=== PATIENT | female | born 1990 | race Caucasian/White ===

== ENCOUNTER 2020-02-01 00:19 | Emergency (ER) | payer SELFPAY ==
[2020-02-01 00:24] VITALS: BP 137/91; PULSE 84; RESP 16; TEMP 36.3; O2SAT 97; BMI 25.4
--- NOTE | 2020-02-01 00:34 | ED_ITS ---
HPI - Skin/Abscess/Foreign Bdy General: Chief complaint: Skin/Abscess/Foreign Body Stated complaint: HOT/RED RASH ON BELLY Time Seen by Provider: 02/01/20 00:26 History of Present Illness: HPI narrative: Nadine is a nice 29-year-old female who comes in complaining of a rash and red tender area on her mid abdomen. She noticed the symptoms several hours ago. She is not aware of any break in the skin but does have redness in the area. She has any fever, chills or nausea/vomiting. She unaware of anything that makes her symptoms better or worse. She describes the intensity of the pain is moderate. She is not tried anything at home for this prior to arrival. Associated symptoms: Deny chills, fever(s), nausea or vomiting Review of Systems Const: Denies: fever(s), chills, body aches, fatigue, malaise, night sweats or diaphoresis Eyes: Denies: change in vision, blurry vision or blind spots ENMT: Denies: throat pain, odynophagia, hoarseness, ear or mastoid pain, ear discharge, change in hearing or nasal discharge Card: Denies: chest pain, palpitations, irregular heart rhythm, lightheadedness, syncope, pre-syncope, dyspnea on exertion or orthopnea Resp: Denies: dyspnea, productive cough, non-productive cough, wheezing, hemoptysis or chest congestion GI: Denies: abdominal pain, nausea, vomiting, hematemesis, coffee ground emesis, heartburn, diarrhea, constipation, GI cramping, hematochezia or melena : Denies: flank pain, dysuria, urinary frequency, urinary urgency, oliguria, urinary incontinence or hematuria Musc: Denies: neck pain, back pain, extremity pain, extremity swelling, joint pain, joint swelling, joint redness, joint warmth or joint stiffness Skin/Breast: Reports: rash, erythema and skin tenderness; Denies: pruritus or jaundice Neuro: Denies: headache(s), numbness in extremities, weakness in extremities, sensory changes, lack of coordination, difficulty walking, dizziness, vertigo, confusion or Slurred speech present Endo: Denies: polyuria, polydipsia, tired all the time, cold intolerance, excessive sweating, flushing, hot flashes or heat intolerance Radu/Lymph: Denies: easy bruising, easy bleeding, petechiae, purpura or enlarged lymph nodes All/Imm: Denies: urticaria, throat swelling, tongue swelling, facial swelling or acute wheezing PFSH ED PFSH: Medical History No pertinent past medical history Surgical History No history of previous surgery Social History Smoking and tobacco status: never smoked Physical Exam Const: COMMON NORMALS: no acute distress, patient oriented x3, no limitations, healthy appearing and well nourished EXAM LIMITATIONS: no altered mental status GENERAL APPEARANCE: cooperative, well kempt and well developed HENMT: COMMON NORMALS: normocephalic, atraumatic, hearing grossly normal bilaterally, external ears normal, EAC's normal, Normal external nose present and moist oral mucous membranes HEAD & SCALP: normal to inspection, normocephalic and atraumatic FACE & SINUS: normal facial exam and face symmetric NOSE: Normal external nose present and Normal nares present EXTERNAL EAR: Yes external ears normal EXTERNAL AUDITORY CANAL: EAC's normal MOUTH: Normal oral and palatal mucosa present, lip normal and tongue normal Eye: COMMON NORMALS: Equal, round and reactive pupils present, EOMs intact bilaterally, conjunctivae normal and no scleral icterus GENERAL EYE: appearance normal, both eyes and all related structures ALIGNMENT: Yes alignment normal PERIORBITAL: periorbital findings normal EYELID: eyelids normal CONJUNCTIVA: Yes conjunctivae normal SCLERA: sclerae normal PUPI L: Yes Equal, round and reactive pupils present Neck/C-Spine: COMMON NORMALS: full ROM, no lymphadenopathy, supple, no meningeal signs and no JVD GENERAL: Yes normal visual inspection and Yes trachea midline CERVICAL SPINE: Yes cervical ROM normal Chest: COMMONS NORMALS: normal inspection of the chest and normal palpation of entire chest wall Resp: COMMON NORMALS: normal respiratory effort, No retractions, No use of accessory muscles and clear to auscultation bilaterally EFFORT & INSPECTION: Yes able to speak in complete sentences AUSCULTATION: clear to auscultation bilaterally, no crackles, no rales, no rhonchi and no wheezes Cardio: COMMON NORMALS: no JVD, regular rate, regular rhythm, S1 normal heart sound present, S2 normal heart sound present, No gallops present (Cardio), No clicks present (Cardio), No murmurs present (Cardio) and No rub (Cardio) RATE: regular rate RHYTHM: regular rhythm HEART SOUNDS: S1 normal heart sound present, S2 normal heart sound present, no click, no gallops, no murmurs and no rubs GI: COMMON NORMALS: Soft to palpation, non-tender, No hepatosplenomegaly present and no masses PALPATION: Yes Soft to palpation, No Tenderness to palpation present (GI), No Guarding due to palpation present (GI), No Rigid due to palpation, Yes No hepatosplenomegaly present, No Hernia present, No Palpable mass present and No Pulsatile mass present : COMMON NORMALS: Yes no CVA tenderness BLADDER/KIDNEY EXAM: Yes no CVA tenderness EXTERNAL FEMALE EXAM: No Hernia present Back/Pelvis: COMMON NORMALS: no CVA tenderness, thoracic and lumbar spine normal to inspection, no thoracic nor lumbar tenderness and thoraco-lumbar ROM normal Extremity: COMMON NORMALS: normal to inspection, full ROM, capillary refill normal, no joint enlargement, no clubbing, cyanosis or edema and no calf tenderness Neuro: COMMON NORMALS: patient oriented x3, CN's II-XII intact bilaterally, moves all extremities, no focal motor deficits and no sensory deficits noted MENINGEAL SIGNS: Yes no meningeal signs SPEECH: speech normal Psych: COMMON NORMALS: mental status grossly normal, Normal thought process present, cooperative, normal affect, speech normal and activity/motor behavior normal APPEARANCE: Yes well kempt SPEECH: Yes normal speech THOUGHT PROCESS: Normal thought process present Skin: COMMON NORMALS: turgor normal, no jaundice, no petechiae and no mottling NARRATIVE SKIN EXAM: Area the size of the patient's palm of cellulitis on the abdominal wall. Area is mildly tender. There is no drainable lesion seen. Area is between the epigastric area and the umbilicus. GENERAL SKIN EXAM: turgor normal Course Vital Signs: Vital signs: Vital Signs Temperature 97.4 F L 02/01/20 00:24 Pulse Rate 80 02/01/20 00:46 Respiratory Rate 16 02/01/20 00:46 Blood Pressure 120/80 02/01/20 00:46 Pulse Oximetry 100 02/01/20 00:46 MDM - Skin/Abscess/Foreign Bdy MDM Narrative: Medical decision making narrative: Bedside ultrasound reveals no evidence of fluid collection or abscess. Ultrasound findings are consistent with a cellulitis. I will go and cover the patient for typical skin cesar with Keflex but also MRSA with Bactrim. Patient understands to watch this and if her symptoms continue to worsen she will need to return here has an abscess could still develop. She has no questions or concerns. Discharge Plan Discharge Patient Disposition: Home, Self-Care Clinical Impression: Cellulitis Qualifiers: Site of cellulitis: trunk Site of cellulitis of trunk: abdominal wall Qualified Code(s): L03.311 - Cellulitis of abdominal wall Condition: Stable Prescriptions: New Bactrim DS 800-160 mg tablet 2 tab PO BID 10 Days Qty: 40 RF: 0 Keflex 500 mg capsule 500 mg PO Q6H 10 Days Qty: 40 RF: 0 No Action Ambien 5 mg Tablet 5 mg PO BEDTIME RF: 0 Discharge Orders: Discharge Order (Routine); Ordered 02/01/20 Ordered By: Iraida Johns Referrals: Nikos Hackett MD [Primary Care Provider] - 1-3 days Discharge Diet: Advance as tolerated Discharge Activity: Increase activity as tolerated Patient Instructions: Cellulitis (ED) Activity Restrictions/Additional Instructions: Please return to the ER immediately for any of the signs or symptoms listed on your discharge instruction sheets, worsening/changing of your symptoms, you are not getting better as quickly as expected, or for ANY other cause or concerns. 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
[2020-02-01] MEDS: cephALEXin 500 mg Capsule PO (00:44)
[2020-02-01] MEDS: acetaminophen 500 mg Tablet 1000 MG PO (00:44)
[2020-02-01] MEDS: sulfamethoxazole-trimeth DS 160-800 mg Tablet 2 TAB PO (00:44)
[2020-02-01 00:46] VITALS: BP 120/80; PULSE 80; RESP 16; O2SAT 100
== END 2020-02-01 00:49 | disposition home or self-care (01) ==
PROVIDERS: Emergency Provider Emergency Medicine; Family Provider Family Medicine; PCP Family Medicine
DX: L03.311 Cellulitis of abdominal wall (principal)
CPT/HCPCS: 12345; 99281; 99283

== ENCOUNTER 2020-05-05 11:46 | Emergency (ER) | payer SELFPAY ==
[2020-05-05 11:55] VITALS: BP 118/56; PULSE 62; RESP 18; TEMP 37; O2SAT 98; BMI 25.4
--- NOTE | 2020-05-05 12:09 | ED_ITS ---
HPI - URI/Sore Throat General: Chief Complaint: Upper Respiratory Infection Stated Complaint: SORE THROAT Time Seen by Provider: 05/05/20 11:56 History of Present Illness: HPI Narrative: Sore throat since last night with some posterior sinus drainage MD elicited complaint: sore throat Onset (ago): hour(s) Severity: mild Associated symptoms: Deny abdominal pain, chills, chest pain, fever(s), headache(s), nasal congestion, nausea or vomiting Review of Systems Const: Denies: fever(s), chills or body aches Eyes: Denies: change in vision or blurry vision ENMT: Reports: throat pain and odynophagia; Denies: nasal congestion Card: Denies: chest pain or dyspnea on exertion Resp: Denies: dyspnea, productive cough or non-productive cough GI: Denies: abdominal pain, nausea or vomiting Musc: Denies: extremity pain Skin/Breast: Denies: rash Neuro: Denies: headache(s) Psych: Denies: anxiety or depression Radu/Lymph: Denies: easy bruising PFS ED PFSH: Medical History (Updated 05/05/20 @ 12:09 by ELVIA Roman) No pertinent past medical history Surgical History No history of previous surgery Social History Smoking and tobacco status: never smoked Physical Exam Const: COMMON NORMALS: no acute distress, average body habitus and patient oriented x3 HENMT: COMMON NORMALS: normocephalic HEAD & SCALP: normal to inspection and normocephalic FACE & SINUS: normal facial exam THROAT: posterior oropharynx abnormal erythema Eye: COMMON NORMALS: conjunctivae normal GENERAL EYE: appearance normal, both eyes and all related structures CONJUNCTIVA: Yes conjunctivae normal Neck/C-Spine: COMMON NORMALS: no JVD Chest: COMMONS NORMALS: normal inspection of the chest Resp: COMMON NORMALS: normal respiratory effort and clear to auscultation bilaterally AUSCULTATION: clear to auscultation bilaterally Cardio: COMMON NORMALS: no JVD, regular rate and regular rhythm RATE: regular rate RHYTHM: regular rhythm GI: COMMON NORMALS: Normal to inspection, nondistended, normoactive bowel sounds present Extremity: COMMON NORMALS: normal to inspection and full ROM Neuro: COMMON NORMALS: patient oriented x3 Course Vital Signs: Vital signs: Vital Signs Temperature 98.6 F 05/05/20 11:55 Pulse Rate 62 05/05/20 11:55 Respiratory Rate 18 05/05/20 11:55 Blood Pressure 118/56 05/05/20 11:55 Pulse Oximetry 98 05/05/20 11:55 Discharge Plan Discharge Patient Disposition: Home Clinical Impression: Pharyngitis Qualifiers: Pharyngitis/tonsillitis etiology: unspecified etiology Qualified Code(s): J02.9 - Acute pharyngitis, unspecified Upper respiratory infection Qualifiers: URI type: unspecified viral URI Qualified Code(s): J06.9 - Acute upper respiratory infection, unspecified Condition: Stable Prescriptions: New Medrol (Lucio) 4 mg tablets,dose pack See Rx Instructions .ROUTE .COMPLEX Qty: 21 RF: 0 No Action Ambien 5 mg Tablet 5 mg PO BEDTIME RF: 0 Discharge Orders: Discharge Order (Routine); Ordered 05/05/20 Ordered By: Jadon Higuera Referrals: Nikso Hackett MD [Primary Care Provider] - Discharge Diet: Usual diet Discharge Activity: Resume usual activity Patient Instructions: Upper Respiratory Infection (ED) Activity Restrictions/Additional Instructions: Follow-up with medical provider as directed. Take medications as prescribed. Return to the ER or your medical provider if condition worsens. Please read and understand discharge instructions. If any questions ask please. Can gargle with Maalox or Mylanta to help with throat discomfort. Can use throat lozenges as needed also. 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
[2020-05-05 12:50] VITALS: BP 110/69; PULSE 63; RESP 18; O2SAT 99
== END 2020-05-05 12:53 | disposition home or self-care (01) ==
PROVIDERS: Emergency Provider Nurse Practitioner Family; PCP Family Medicine
DX: J02.9 Acute pharyngitis, unspecified (principal)
CPT/HCPCS: 12345; 99281; 99282

== ENCOUNTER 2020-05-08 09:45 | Emergency (ER) | payer SELFPAY ==
[2020-05-08 09:53] VITALS: BP 133/80; PULSE 91; RESP 22; TEMP 36.7; O2SAT 100; BMI 24.5
--- NOTE | 2020-05-08 09:56 | CT_ITS ---
WS: [id number] EXAM: CT neck w con* [id number] DATE OF EXAMINATION: 05/08/2020, 1106 hours COMPARISON: None. HISTORY: 29 years old with throat and neck pain for the last 3 days. Dysphagia. TECHNIQUE: Transaxial computed tomography images obtained through the neck utilizing 95 mL of Omnipaq ue 300 IV contrast with images acquired in the bolus phase and viewed in multiple windows with recons tructions. DLP: 516.[address] scans at [facility] use at least one of these dose optimization techniques: automat ed exposure control; mA and/or kV adjustment per patient size (includes targeted exams where dose is matched to clinical indication); or iterative reconstruction. FINDINGS: The visualized mid and inferior intraconal contents are unremarkable. Orbital fossa contents as visua lized are unremarkable. Nasopharyngeal region, parapharyngeal fat planes are normal in appearance. Sl ight irregular to the tonsillar pillar enhancement. Suggesting possible tonsillitis. Concretion is se en within some of the tonsillar crypts on the left. No findings of an abscess identified. Soft palate , tongue, sublingual space are normal in appearance. Enlargement of the lingular tonsillar tissue. Va llecular space is otherwise normal in appearance. Epiglottis, aryepiglottic folds and subglottic airw ay are normal in appearance. There appears be a small amount of edema associated with the larynx. Que stion if the patient has underlying concomitant laryngitis. Thyroid gland is normal in appearance. Lung apices are clear. Shotty lymph nodes are seen in both anterior cervical chains as well as in the left greater than right retrojugular chains most likely reactive in nature. There appears to be dental caries involving the most posterior left maxillary and mandibular molars a nd the most posterior right maxillary molar. CT/CT neck w con* [id number] IMPRESSION: Reactive adenopathy in the neck as described. There is heterogeneous enhancemen t of both tonsillar pillars as well as a small amount of edema involving the ar ea of the larynx suggesting tonsillitis and laryngitis. No fluid collection wit h rim enhancement to suggest a site of abscess identified. Findings of dental caries. Dentist referral recommended.
[2020-05-08] MEDS: ondansetron 2 mg/ML SDV 2 mL 4 MG IVP (10:09)
[2020-05-08 10:10] VITALS: RESP 18; O2SAT 100
[2020-05-08] MEDS: dexamethasone 10 mg/mL INJ IVP (10:10)
[2020-05-08] MEDS: HYDROmorphone 1 mg/mL INJ 1 mL 0.5 MG IVP ×2 (10:10→13:14)
[2020-05-08] MEDS: lactated ringers 1,000 ML 999 ML IV (10:10)
[2020-05-08] MEDS: ketorolac 30 mg/mL INJ 15 MG IVP (10:10)
[2020-05-08 10:19] LABS: Basophils % 0.3 %; Eosinophils # 0.3 10^3/uL (0.0-0.8); Eosinophils % 2.9 %; Hematocrit 44.3 % (37.0-47.0); Hemoglobin 14.3 g/dL (11.5-15.3); Lymphocytes # 1.6 10^3/uL (0.8-4.8); Mean Corpuscular HGB Conc 32.3 g/dL (30.0-36.0); Mean Corpuscular Hemoglobin 29.1 pg (28.0-34.0); Mean Corpuscular Volume 90.2 fL (81-99); Mean Platelet Volume 10.5 fL (7.4-10.4); Monocytes % 8.3 %; Neutrophils # 8.64 10^3/uL (1.8-7.7); Neutrophils % 74.2 %; Nucleated Red Blood Cells % 0 %; Platelet Count 293 10^3/cmm (130-400); Red Blood Count 4.91 10^6/uL (4.1-5.3); Red Cell Distribution Width 11.7 % (12.1-15.1); White Blood Count 11.7 10^3/uL (4.0-10.0)
[2020-05-08 10:38] LABS: Alanine Aminotransferase 12 U/L (0-33); Albumin Level 4.5 g/dL (3.5-5.2); Alkaline Phosphatase 96 IU/L (35-105); Anion Gap 15.5 (5-19); Aspartate Amino Transferase 16 U/L (0-32); Blood Urea Nitrogen 9 mg/dL (6-20); Calcium 9.8 mg/dL (8.5-10.5); Carbon Dioxide 23 mmol/L (22-29); Chloride 104 mmol/L (98-107); Globulin 3.3 g/dL (1.3-4.6); Glomerular Filtration Rate 116.6 mL/min (90-130); Glucose 118 mg/dL (65-115); Osmolality Calculated 285 mOsm/kg (285-295); Potassium 3.5 mmol/L (3.5-5.1); Sodium 139 mmol/L (136-145); Total Bilirubin 1.3 mg/dL (0.15-1.2); Total Protein 7.8 g/dL (6.6-8.7)
[2020-05-08 10:40] LABS: HCG, Serum Qual Negative (Negative)
[2020-05-08] MEDS: iohexol 300 mg/mL 100 mL Btl IV (11:12)
[2020-05-08] MEDS: clindamycin 900 MG/50 ML PREMIX 100 MG IV (12:27)
[2020-05-08 13:14] VITALS: RESP 18; O2SAT 99
[2020-05-08 13:24] VITALS: BP 135/74; PULSE 84; RESP 17; O2SAT 98
--- NOTE | 2020-05-08 18:23 | ED_ITS ---
HPI - Dental/Oral General: Chief complaint: Dental/Oral Stated complaint: sob/can't talk Time Seen by Provider: 05/08/20 09:51 History of Present Illness: HPI Narrative: Patient presents with severe sore throat. She said she is unable to swallow. She is unable to lay back because she cannot control her secretions. She is having shortness of breath when she lays back. Is when she sits up and lays forward she feels better. When asked specifically she is able to swallow but it is painful to do so. She is spitting her saliva into a cup. This started a few days ago. She was seen and given a prescription for steroids. She said her boyfriend and thinks she needed him and so would not go get them filled for her. She denies any prior history of severe throat infection. Duration: constant Severity: severe Relieving factors: nothing Exacerbating factors: swallowing Associated symptoms: Reports odynophagia and sore throat Review of Systems ENMT: Reports: odynophagia and hoarseness Card: Denies: chest pain Resp: Denies: dyspnea or productive cough GI: Denies: abdominal pain PFS ED PFSH: Medical History (Updated 05/08/20 @ 12:44 by Nyla Ly MD) No pertinent past medical history Surgical History No history of previous surgery Social History Smoking and tobacco status: never smoked Physical Exam Const: COMMON NORMALS: patient oriented x3, no limitations and alert GENERAL APPEARANCE: cooperative and comfortable HENMT: HEAD & SCALP: normal to inspection FACE & SINUS: normal facial exam MOUTH: other (Unable to open her mouth for an exam.) Eye: GENERAL EYE: appearance normal, both eyes and all related structures Neck/C-Spine: COMMON NORMALS: supple, no meningeal signs and no JVD Chest: COMMONS NORMALS: normal inspection of the chest Resp: COMMON NORMALS: normal respiratory effort, No use of accessory muscles and clear to auscultation bilaterally AUSCULTATION: clear to auscultation bilaterally Cardio: COMMON NORMALS: no JVD, regular rate, regular rhythm and No murmurs present (Cardio) RATE: regular rate RHYTHM: regular rhythm GI: COMMON NORMALS: Normal to inspection, nondistended, normoactive bowel sounds present, Soft to palpation and non-tender INSPECTION: Yes normal to inspection AUSCULTATION: Yes normoactive bowel sounds PALPATION: Yes Soft to palpation Back/Pelvis: COMMON NORMALS: thoracic and lumbar spine normal to inspection Extremity: COMMON NORMALS: normal to inspection Neuro: COMMON NORMALS: patient oriented x3, moves all extremities, no focal motor deficits and no sensory deficits noted SENSORIUM/ORIENTATION: Yes alert MENINGEAL SIGNS: Yes no meningeal signs Psych: COMMON NORMALS: mental status grossly normal, cooperative and normal affect Skin: COMMON NORMALS: no rashes or lesions noted and turgor normal GENERAL SKIN EXAM: no rashes or lesions noted and turgor normal Course ED course: Patient given IV fluids, Toradol, hydromorphone, Decadron. CT was done to rule out abscess. This showed diffuse edema but no abscess. Radiologic diagnosis consistent with tonsillitis and laryngitis. I discussed with the patient these may be viral however I did put her on clindamycin. She was much improved after treatment in the ED. She was able to talk, sit up comfortably, swallow. She understands return precautions and follow-up instructions. Vital Signs: Vital signs: Vital Signs Temperature 98.0 F 05/08/20 09:53 Pulse Rate 84 05/08/20 13:24 Respiratory Rate 17 05/08/20 13:24 Blood Pressure 135/74 05/08/20 13:24 Pulse Oximetry 98 05/08/20 13:24 MDM - Dental/Oral MDM Narrative: Medical decision making narrative: Peritonsillar abscess, retro pharyngeal abscess, epiglottitis, foreign body. Lab Data: Labs: Lab Results 05/08/20 05/08/20 05/08/20 Range/Units 10:00 10:00 10:00 WBC 11.7 H (4.0-10.0) 10^3/ uL RBC 4.91 (4.1-5.3) 10^6/u L Hgb 14.3 (11.5-15.3) g/dL Hct 44.3 (37.0-47.0) % MCV 90.2 (81-99) fL MCH 29.1 (28.0-34.0) pg MCHC 32.3 (30.0-36.0) g/dL RDW 11.7 L (12.1-15.1) % Plt Count 293 (130-400) 10^3/c mm MPV 10.5 H (7.4-10.4) fL Neut % (Auto) 74.2 % Lymph % (Auto) 14.0 % [place] % (Auto) 8.3 % Eos % (Auto) 2.9 % Baso % (Auto) 0.3 % Neut # (Auto) 8.64 H (1.8-7.7) 10^3/u L Lymph # (Auto) 1.6 (0.8-4.8) 10^3/u L [place] # (Auto) 1.0 H (0.2-0.9) 10^3/u L Eos # (Auto) 0.3 (0.0-0.8) 10^3/u L Baso # (Auto) 0.0 (0.0-0.1) 10^3/u L Nucleated RBC % (a uto) 0 % Nucleated RBCs # 0.0 /100WBC Sodium 139 (136-145) mmol/L Potassium 3.5 (3.5-5.1) mmol/L Chloride 104 (98-107) mmol/L Carbon Dioxide 23 (22-29) mmol/L Anion Gap 15.5 (5-19) BUN 9 (6-20) mg/dL Creatinine 0.6 (0.5-0.9) mg/dL GFR Calculation 116.6 (90-130) mL/min Glucose 118 H (65-115) mg/dL Calculated Osmolal ity 285 (285-295) mOsm/k g Calcium 9.8 (8.5-10.5) mg/dL Total Bilirubin 1.3 H (0.15-1.2) mg/dL AST 16 (0-32) U/L ALT 12 (0-33) U/L Alkaline Phosphata se 96 (35-105) IU/L Total Protein 7.8 (6.6-8.7) g/dL Albumin 4.5 (3.5-5.2) g/dL Globulin 3.3 (1.3-4.6) g/dL HCG, Qual Negative (Negative) Discharge Plan Discharge Patient Disposition: Home Clinical Impression: Pharyngitis Qualifiers: Pharyngitis/tonsillitis etiology: unspecified etiology Qualified Code(s): J02.9 - Acute pharyngitis, unspecified Condition: Stable Prescriptions: New clindamycin HCl 150 mg capsule 300 mg PO QID 10 Days Qty: 80 RF: 0 No Action Tylenol 325 mg Tablet 325 - 650 mg PO QID PRN (Reason: pain/fever) RF: 0 melatonin 3 mg Tablet 6 mg PO BEDTIME PRN (Reason: Sleep) RF: 0 ibuprofen 200 mg Tablet 200 - 400 mg PO Q6H PRN (Reason: pain/fever) RF: 0 hydroxyzine HCl 25 mg Tablet 25 mg PO BID PRN (Reason: Anxiety) RF: 0 Throat Lozenges Lozenge 1 mee MUCOUS MEMBRANE Q2H PRN (Reason: Sore Throat) RF: 0 Discharge Orders: Discharge Order (Routine); Ordered 05/08/20 Ordered By: Nyla Ly Referrals: Nikos Hackett MD [Primary Care Provider] - Discharge Diet: Advance as tolerated Discharge Activity: Resume usual activity Patient Instructions: Pharyngitis (ED) Activity Restrictions/Additional Instructions: Make sure drink plenty of fluids. Return to the emergency department if worsening of symptoms including difficulty breathing or swallowing. Continue the antibiotics as prescribed. Use the steroid as prescribed on prior visit. 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
== END 2020-05-08 13:26 | disposition home or self-care (01) ==
PROVIDERS: Emergency Provider Emergency Medicine; PCP Family Medicine
DX: J02.9 Acute pharyngitis, unspecified (principal)
CPT/HCPCS: 12345; 70491; 80053; 84703; 85025; 96360; 96361; 96365; 96367; 96375; 96376; 99283; 99284; J1100; J1170; J1885; J2405; J3490; Q9967

== ENCOUNTER → 2020-12-29 18:34 | Outpatient (BNVA) | payer OTHER, SELFPAY | PROVIDERS: Visit Provider Nurse Practitioner Family | DX: Z11.3 Encounter for screening for infections with a predominantly sexual mode of transmission (principal); B37.3 Candidiasis of vulva and vagina | CPT/HCPCS: 87491; 87591 ==

== ENCOUNTER 2020-12-30 04:10 | Emergency (ER) | payer OTHER, SELFPAY ==
[2020-12-30 04:11] VITALS: BP 135/78; PULSE 78; RESP 16; TEMP 36.8; O2SAT 96; BMI 25.9
[2020-12-30 04:15] VITALS: BP 153/83; PULSE 68; RESP 17; O2SAT 98
--- NOTE | 2020-12-30 04:15 | ECG_ITS ---
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 Measurements Intervals [place] Rate: 60 P: 48 NC: 136 QRS: 56 QRSD: 83 T: 54 QT: 403 QTc: 404 Interpretive Statements SINUS RHYTHM Compared to ECG 12/04/2018 13:19:10 Sinus arrhythmia no longer present Electronically Signed On 12-30-2020 20:58:18 CDT by Aurora Bui M.D. [email or web address] Therapeuticsfairfield medical centerHorizon Wind [email or web address]/store/[id number] f
--- NOTE | 2020-12-30 04:15 | XR_ITS ---
WS: [id number] Portable AP upright chest, 12/30/2020 Clinical Data: cp Comparison: PA chest, 10/12/2016. Findings: No nodules, masses or effusions are seen. The heart is normal. The pulmonary vascularity is not increased. No pneumonia or pneumothorax is seen. Monitor leads on the chest wall. XR/XR chest 1V portable [id number] Impression: Negative chest.
--- NOTE | 2020-12-30 04:18 | ED_ITS ---
HPI - Chest Pain General: Chief Complaint: Chest Pain Stated Complaint: chest pain Time Seen by Provider: 12/30/20 04:12 Source: patient Mode of arrival: ambulatory Limitations: no limitations History of Present Illness: HPI narrative: 30-year-old female states she woke up at 3 AM with a sharp pain in the center of her chest. She states that the pain radiates to her back and now she is having back pain. States pain is now in the center of her back she rates a 6 out of 10. She denies any shortness of breath. She denies any fever. Denies any worsening improving factors. Associated symptoms: Deny abdominal pain, dyspnea, fever(s), nausea or vomiting Review of Systems Const: Denies: fever(s), chills, body aches or change in appetite Eyes: Denies: blurry vision or eye discomfort ENMT: Denies: throat pain or dental pain Card: Reports: chest pain Resp: Denies: dyspnea GI: Denies: abdominal pain, nausea, vomiting or diarrhea : Denies: dysuria Musc: Reports: back pain; Denies: neck pain Skin/Breast: Denies: rash Neuro: Denies: headache(s) Psych: Denies: depression Radu/Lymph: Denies: easy bruising All/Imm: Denies: urticaria PFSH ED PFSH: Medical History (Updated 12/30/20 @ 05:13 by Tiffany Jacob MD) No pertinent past medical history Surgical History No history of previous surgery Social History Smoking and tobacco status: never smoked Second hand smoke exposure: No Alcohol intake: current Alcohol intake frequency: holidays/special occasions only Female Reproductive History: Date of last menstrual period: 12/15/20 Physical Exam Const: COMMON NORMALS: no acute distress, patient oriented x3 and healthy appearing HENMT: COMMON NORMALS: normocephalic and atraumatic HEAD & SCALP: normocephalic and atraumatic Eye: COMMON NORMALS: Equal, round and reactive pupils present and EOMs intact bilaterally PUPIL: Yes Equal, round and reactive pupils present Neck/C-Spine: COMMON NORMALS: full ROM and supple Chest: COMMONS NORMALS: normal inspection of the chest and normal palpation of entire chest wall Resp: COMMON NORMALS: normal respiratory effort, No retractions, No use of accessory muscles and clear to auscultation bilaterally AUSCULTATION: clear to auscultation bilaterally Cardio: COMMON NORMALS: regular rate, regular rhythm and No murmurs present (Cardio) RATE: regular rate RHYTHM: regular rhythm GI: COMMON NORMALS: Normal to inspection, nondistended, normoactive bowel sounds present, Soft to palpation, non-tender and no masses PALPATION: Yes Soft to palpation Extremity: COMMON NORMALS: normal to inspection and full ROM Neuro: COMMON NORMALS: patient oriented x3, moves all extremities and no focal motor deficits Psych: COMMON NORMALS: mental status grossly normal, Normal thought process present and cooperative THOUGHT PROCESS: Normal thought process present Skin: COMMON NORMALS: no rashes or lesions noted and no wounds GENERAL SKIN EXAM: no rashes or lesions noted Course Vital Signs: Vital signs: Vital Signs Temperature 98.2 F 12/30/20 04:11 Pulse Rate 65 12/30/20 05:23 Respiratory Rate 18 12/30/20 05:23 Blood Pressure 153/83 12/30/20 04:15 Pulse Oximetry 98 12/30/20 05:23 MDM - Chest Pain MDM Narrative: Medical decision making narrative: Patient presents here with chest pain on back pains atypical in nature. X-ray here is normal. Patient's troponin and D-dimer is negative. She has no signs of pulmonary embolism or aortic dissection. Her EKG is negative and has no signs of acute coronary syndrome. Patient is stable for discharge and is to follow-up with PCP and return if worsening. Lab Data: Labs: Lab Results 12/30/20 12/30/20 12/30/20 Range/Units 04:23 04:23 04:23 WBC 13.6 H (4.0-10.0) 10^3/ uL RBC 4.74 (4.1-5.3) 10^6/u L Hgb 13.7 (11.5-15.3) g/dL Hct 42.5 (37.0-47.0) % MCV 89.7 (81-99) fL MCH 28.9 (28.0-34.0) pg MCHC 32.2 (30.0-36.0) g/dL RDW 11.9 L (12.1-15.1) % Plt Count 282 (130-400) 10^3/c mm MPV 10.9 H (7.4-10.4) fL Neut % (Auto) 61.0 % Lymph % (Auto) 29.4 % [place] % (Auto) 6.6 % Eos % (Auto) 2.3 % Baso % (Auto) 0.4 % Neut # (Auto) 8.29 H (1.8-7.7) 10^3/u L Lymph # (Auto) 4.0 (0.8-4.8) 10^3/u L [place] # (Auto) 0.9 (0.2-0.9) 10^3/u L Eos # (Auto) 0.3 (0.0-0.8) 10^3/u L Baso # (Auto) 0.1 (0.0-0.1) 10^3/u L Nucleated RBC % (a uto) 0 % Nucleated RBCs # 0.0 /100WBC D-Dimer (0-0.59) ug/mIFE U Sodium 138 (136-145) mmol/L Potassium 4.0 (3.5-5.1) mmol/L Chloride 105 (98-107) mmol/L Carbon Dioxide 24 (22-29) mmol/L Anion Gap 13.0 (5-19) BUN 9 (6-20) mg/dL Creatinine 0.5 (0.5-0.9) mg/dL GFR Calculation 143.0 H (90-130) mL/min Glucose 111 (65-115) mg/dL Calculated Osmolal ity 285 (285-295) mOsm/k g Calcium 8.8 (8.5-10.5) mg/dL Total Bilirubin 0.8 (0.15-1.2) mg/dL AST 14 (0-32) U/L ALT 8 (0-33) U/L Alkaline Phosphata se 68 (35-105) IU/L Troponin T Baselin e 7 (0-10) ng/L Total Protein 6.3 L (6.6-8.7) g/dL Albumin 4.1 (3.5-5.2) g/dL Globulin 2.2 (1.3-4.6) g/dL 04/16/21 Range/Units 04:30 WBC (4.0-10.0) 10^3/ uL RBC (4.1-5.3) 10^6/u L Hgb (11.5-15.3) g/dL Hct (37.0-47.0) % MCV (81-99) fL MCH (28.0-34.0) pg MCHC (30.0-36.0) g/dL RDW (12.1-15.1) % Plt Count (130-400) 10^3/c mm MPV (7.4-10.4) fL Neut % (Auto) % Lymph % (Auto) % [place] % (Auto) % Eos % (Auto) % Baso % (Auto) % Neut # (Auto) (1.8-7.7) 10^3/u L Lymph # (Auto) (0.8-4.8) 10^3/u L [place] # (Auto) (0.2-0.9) 10^3/u L Eos # (Auto) (0.0-0.8) 10^3/u L Baso # (Auto) (0.0-0.1) 10^3/u L Nucleated RBC % (a uto) % Nucleated RBCs # /100WBC D-Dimer <= 0.27 (0-0.59) ug/mIFE U Sodium (136-145) mmol/L Potassium (3.5-5.1) mmol/L Chloride (98-107) mmol/L Carbon Dioxide (22-29) mmol/L Anion Gap (5-19) BUN (6-20) mg/dL Creatinine (0.5-0.9) mg/dL GFR Calculation (90-130) mL/min Glucose (65-115) mg/dL Calculated Osmolal ity (285-295) mOsm/k g Calcium (8.5-10.5) mg/dL Total Bilirubin (0.15-1.2) mg/dL AST (0-32) U/L ALT (0-33) U/L Alkaline Phosphata se (35-105) IU/L Troponin T Baselin e (0-10) ng/L Total Protein (6.6-8.7) g/dL Albumin (3.5-5.2) g/dL Globulin (1.3-4.6) g/dL Imaging Data^: CXR: Attestation: I personally reviewed and interpreted this imaging study as follows: My impression: no acute abnormality EKG Data^: EKG 1: Attestation: I personally reviewed and interpreted this EKG as follows: EKG interpretation date: 12/30/20 EKG interpretation time: 04:18 Interpretation: nsr hr [address] or t wave abnormalities qrs 83 qtc 403 Discharge Plan Discharge Patient Disposition: Home Clinical Impression: Chest pain Qualifiers: Chest pain type: unspecified Qualified Code(s): R07.9 - Chest pain, unspecified Condition: Stable Prescriptions: New Naprosyn 500 mg tablet 500 mg PO BID PRN (Reason: pain) Qty: 20 RF: 0 No Action melatonin 3 mg Tablet 6 mg PO BEDTIME PRN (Reason: Sleep) RF: 0 hydroxyzine HCl 25 mg Tablet 25 mg PO BID PRN (Reason: Anxiety) RF: 0 Discharge Orders: Discharge ED (Routine); Ordered 12/30/20 Ordered By: Tiffany Jacob Discharge Diet: Advance as tolerated Discharge Activity: Resume usual activity Patient Instructions: Chest Pain (ED) Coding Level of Care Code ED Raker Buffing Wheel for Chg Fwd Exam Comprehensive
[2020-12-30] MEDS: ondansetron 2 mg/ML SDV 2 mL 4 MG IVP (04:23)
[2020-12-30 04:25] VITALS: RESP 16
[2020-12-30] MEDS: morphine 4 mg/mL SDV 1 mL IVP (04:25)
[2020-12-30 04:30] LABS: Basophils # 0.1 10^3/uL (0.0-0.1); Basophils % 0.4 %; Eosinophils # 0.3 10^3/uL (0.0-0.8); Eosinophils % 2.3 %; Hematocrit 42.5 % (37.0-47.0); Hemoglobin 13.7 g/dL (11.5-15.3); Lymphocytes % 29.4 %; Mean Corpuscular HGB Conc 32.2 g/dL (30.0-36.0); Mean Corpuscular Hemoglobin 28.9 pg (28.0-34.0); Mean Corpuscular Volume 89.7 fL (81-99); Mean Platelet Volume 10.9 fL (7.4-10.4); Monocytes # 0.9 10^3/uL (0.2-0.9); Monocytes % 6.6 %; Neutrophils # 8.29 10^3/uL (1.8-7.7); Nucleated Red Blood Cells % 0 %; Platelet Count 282 10^3/cmm (130-400); Red Blood Count 4.74 10^6/uL (4.1-5.3); Red Cell Distribution Width 11.9 % (12.1-15.1); White Blood Count 13.6 10^3/uL (4.0-10.0)
[2020-12-30 04:47] LABS: Alanine Aminotransferase 8 U/L (0-33); Albumin Level 4.1 g/dL (3.5-5.2); Alkaline Phosphatase 68 IU/L (35-105); Aspartate Amino Transferase 14 U/L (0-32); Blood Urea Nitrogen 9 mg/dL (6-20); Calcium 8.8 mg/dL (8.5-10.5); Carbon Dioxide 24 mmol/L (22-29); Chloride 105 mmol/L (98-107); Globulin 2.2 g/dL (1.3-4.6); Glucose 111 mg/dL (65-115); Osmolality Calculated 285 mOsm/kg (285-295); Sodium 138 mmol/L (136-145); Total Bilirubin 0.8 mg/dL (0.15-1.2); Total Protein 6.3 g/dL (6.6-8.7)
[2020-12-30 04:49] LABS: D Dimer <= 0.27 ug/mIFEU (0-0.59)
[2020-12-30 04:49] LABS: Troponin(5th) Baseline 7 ng/L (0-10)
[2020-12-30 05:23] VITALS: PULSE 65; RESP 18; O2SAT 98
== END 2020-12-30 05:24 | disposition home or self-care (01) ==
PROVIDERS: Emergency Provider Emergency Medicine
DX: R07.9 Chest pain, unspecified (principal)
CPT/HCPCS: 71045; 80053; 84484; 85025; 85378; 93005; 96374; 96375; 99284; J2270; J2405

== ENCOUNTER → 2021-06-07 16:37 | Outpatient (BNVA) | payer OTHER, SELFPAY | PROVIDERS: Visit Provider Registered Nurse Neonatal Intensive Care | DX: Z34.90 Encounter for supervision of normal pregnancy, unspecified, unspecified trimester (principal) | CPT/HCPCS: 81025 ==

== ENCOUNTER 2021-09-11 10:27 | Emergency (ER) | payer OTHER, SELFPAY ==
[2021-09-11 11:36] VITALS: PULSE 61; RESP 16; O2SAT 99; BMI 27.3
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
== END 2021-09-11 13:11 | disposition home or self-care (01) ==
PROVIDERS: Emergency Provider Physician Assistant
DX: S13.9XXA Sprain of joints and ligaments of unspecified parts of neck, initial encounter (principal); S23.9XXA Sprain of unspecified parts of thorax, initial encounter; V89.2XXA Person injured in unspecified motor-vehicle accident, traffic, initial encounter
CPT/HCPCS: 70450; 72125; 72128; 99282

== ENCOUNTER → 2021-09-27 09:50 | Outpatient (BNVA) | payer OTHER, SELFPAY | PROVIDERS: Visit Provider Obstetrics & Gynecology | DX: Z12.4 Encounter for screening for malignant neoplasm of cervix (principal) | CPT/HCPCS: 87624 ==

== ENCOUNTER 2022-03-06 11:02 | Emergency (ER) | payer OTHER, SELFPAY ==
[2022-03-06 11:21] VITALS: BP 115/77; PULSE 62; RESP 16; TEMP 37; O2SAT 99; BMI 26.4
--- NOTE | 2022-03-06 13:51 | W.ED.ANIMALB ---
HPI - Animal Bite General: Chief Complaint: Animal Bite Stated Complaint: rabies shot Time Seen by Provider: 03/06/22 13:50 History of Present Illness: Patient is a 31-year-old female comes to the ED after being bit by a feral cat. Patient was bit on left hand third finger. Bite injury occurred yesterday. She cleaned out bite using alcohol. she went [facility] the [facility] and received Tdap vaccination and was sent here to the ED to receive rabies vaccination. Associated symptoms: Deny chills, fever(s) or headache(s) Review of Systems Const: Denies: fever(s), chills or fatigue Eyes: Denies: change in vision or eye discomfort ENMT: Denies: throat pain, odynophagia, nasal discharge or nasal congestion Card: Denies: chest pain, palpitations, edema, swelling of feet/ankles, dyspnea on exertion or orthopnea Resp: Denies: dyspnea, productive cough or non-productive cough GI: Denies: abdominal pain, nausea, vomiting, diarrhea, constipation or hematochezia : Denies: flank pain, dysuria or hematuria Musc: Denies: neck pain, back pain or extremity swelling Skin/Breast: Reports: new lesions (Cat bite on the left hand third finger.); Denies: rash Neuro: Denies: headache(s), numbness in extremities or weakness in extremities [facility] ED PFSH: Medical History No pertinent past medical history Denies diabetes, asthma, hypertension, seizures, DVT/PE PCP: And[facility] Surgical History No history of previous surgery Family History Other Ovarian cancer Denies family history of Diabetes Heart disease Hyperlipidemia Breast cancer Hypertension Uterine cancer Thyroid condition Stroke Female Reproductive History: Date of last menstrual period: 03/01/21 Physical Exam Const: COMMON NORMALS: no acute distress, patient oriented x3, no limitations and alert GENERAL APPEARANCE: cooperative and comfortable HENMT: COMMON NORMALS: normocephalic HEAD & SCALP: normocephalic MOUTH: Normal oral and palatal mucosa present THROAT: posterior oropharynx normal and uvula midline Neck/C-Spine: COMMON NORMALS: supple GENERAL: Yes normal visual inspection Resp: COMMON NORMALS: normal respiratory effort, No retractions, No use of accessory muscles and clear to auscultation bilaterally AUSCULTATION: clear to auscultation bilaterally Cardio: COMMON NORMALS: regular rate, regular rhythm, S1 normal heart sound present, S2 normal heart sound present, No gallops present (Cardio), No clicks present (Cardio), No murmurs present (Cardio) and Peripheral pulses 2+ throughout RATE: regular rate RHYTHM: regular rhythm HEART SOUNDS: S1 normal heart sound present and S2 normal heart sound present PERIPHERAL PULSES: Peripheral pulses 2+ throughout GI: COMMON NORMALS: Normal to inspection, nondistended, normoactive bowel sounds present, Soft to palpation, non-tender and no masses PALPATION: Yes Soft to palpation : COMMON NORMALS: Yes no CVA tenderness BLADDER/KIDNEY EXAM: Yes no CVA tenderness Back/Pelvis: COMMON NORMALS: no CVA tenderness Extremity: COMMON NORMALS: normal to inspection NARRATIVE EXTREMITY EXAM: Left hand third digit?small superficial bite/puncture wound noted on distal end of finger. No nail bed or nail damage noted. No signs of cellulitis present. Neuro: COMMON NORMALS: patient oriented x3 and moves all extremities SENSORIUM/ORIENTATION: Yes alert Skin: GENERAL SKIN EXAM: dry skin Course Vital Signs: Vital signs: Vital Signs Temperature 98.6 F 03/06/22 11:21 Pulse Rate 62 03/06/22 11:21 Respiratory Rate 16 03/06/22 11:21 Blood Pressure 115/77 03/06/22 11:21 Pulse Oximetry 99 03/06/22 11:21 MDM - Animal Bite Medical Decision Making Patient is a 31-year-old female comes to the ED after being bit by a feral cat. Patient was bit on left hand third finger. Bite injury occurred yesterday. She cleaned out bite using alcohol. she went to the health department and received Tdap vaccination and was sent here to the ED to receive rabies vaccination. Vitals are stable. Patient appears nontoxic in no acute distress or pain. Left hand third digit?small superficial bite/puncture wound noted on distal end of finger. No nail bed or nail damage noted. No signs of cellulitis present. Patient was given dose of rabies vaccination and rabies immunoglobulin. I infused the rabies immunoglobulin around patient's bite and then rest of rabies immunoglobulin was given by nurse via IM. She was stable for discharge home and sent with a prescription for Augmentin. She was told to return to the ED or urgent care to receive her next rabies vaccination. Her discharge paperwork had the schedule for next 3 rabies vaccinations. Patient understood agree with plan. Discharge Plan Discharge Patient Disposition: Home Clinical Impression: Cat bite, Rabies, need for prophylactic vaccination against Condition: Stable Prescriptions: New amoxicillin-pot clavulanate 500-125 mg tablet 1 tab PO BID 7 Days Qty: 14 0RF Discharge Orders: Discharge ED (Routine); Ordered 03/06/22 Ordered By: Jony Whitaker Discharge Diet: Regular Discharge Activity: Increase activity as tolerated Patient Instructions: Rabies Vaccine (By injection), Rabies Immune Globulin (By injection), Animal Bite (ED), Rabies (ED) Activity Restrictions/Additional Instructions: Follow-up with medical provider as directed. return to the ED or call Urgent care to see if they have rabies vaccines available for dose on day 3(March 09), 7 (march 13) and 14(March 20). take medications as prescribed. Return to the ER or your medical provider if condition worsens. Please read and understand discharge instructions. If any questions, please ask. 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
[2022-03-06] MEDS: rabies vaccine 2.5 unit SDV IM (14:19)
== END 2022-03-06 15:54 | disposition home or self-care (01) ==
PROVIDERS: Emergency Provider Physician Assistant
DX: S61.253A Open bite of left middle finger without damage to nail, initial encounter (principal); W55.01XA Bitten by cat, initial encounter; Z29.14 Encounter for prophylactic rabies immune globulin; Z20.3 Contact with and (suspected) exposure to rabies; Z23 Encounter for immunization
CPT/HCPCS: 90375; 90471; 90675; 99283

== ENCOUNTER → 2023-05-28 10:51 | Outpatient (BNVA) | payer OTHER, SELFPAY | PROVIDERS: PCP Nurse Practitioner Family; Visit Provider Emergency Medicine | DX: J02.9 Acute pharyngitis, unspecified (principal) | CPT/HCPCS: 87071; 87880 ==

== ENCOUNTER 2025-03-08 06:52 | Outpatient (CLI) | payer SELFPAY ==
--- NOTE | 2025-03-08 06:58 | US_ITS ---
WS: [id number] US transvaginal [id number] HISTORY: follicle count, endo thickness COMPARISON: None available. Uterus: 9.7 cm x 5.6 cm x 5.3 cm. Normal size anteverted uterus. No fibroid or mass. Endometrium: 0.6 cm. Normal homogeneous increased echogenicity. Right ovary: Not identified. No adnexal mass. Left ovary: 3.0 cm x 2.2 cm x 1.9 cm. LEFT ovary evaluation is suboptimal. There are at least 7 follicles identified. The largest follicle measures 0.6 x 0.8 x 0.7 cm. No free fluid in the cul-de-sac. US/US transvaginal [id number] IMPRESSION: 1. Technically difficult transvaginal pelvic ultrasound. 2. Endometrial thickness 0.6 cm. 3. 7 LEFT ovarian follicles with the largest measuring 0.6 x 0.8 x 0.7 cm. 4. RIGHT ovary is not identified.
== END 2025-03-08 06:53 | disposition home or self-care (01) ==
PROVIDERS: PCP Nurse Practitioner Family; Visit Provider Obstetrics & Gynecology Reproductive Endocrinology
DX: Z31.83 Encounter for assisted reproductive fertility procedure cycle (principal)
CPT/HCPCS: 76830

== ENCOUNTER 2025-04-10 11:14 | Emergency (ER) | payer OTHER, SELFPAY ==
--- OUTSIDE RECORDS SUMMARY | 2025-04-10 11:23 | XMS_ITS | Data Portability ---
Author Organization [facility] Jaziel Phillips 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 Plan of Treatment Reminders Order Date Submit Date Provider Last Modified By Organization Details Last Modified Time Details Appointments None recorded. Lab CMP, serum or plasma 2024 025 [facility], [address], [address], 5 08:36:57 CBC 2024 025 [facility], [address], [address], 5 17:42:33 Referral ophthalmolo gist referral 2024 025 astrange 2 Nikos Luna MD, [address] [place], [address], 5 17:16:22 Procedures None recorded. Surgeries None recorded. Imaging electrocard iogram [address] ([facility]), [address] [place], [address], 14:13:21 holter monitor - 72h 2024 025 [email or web address] 2 [facility], [address] [place], [address], 11:36:42 Medication Orders None recorded. Patient TargetsNo targets recorded. Patient InstructionsNo instructions recorded. Reason for Referral Automatic Engraver Referral for Visual disturbance Referring Physician: Maryana Callahan, Family Medicine, Encounter Date: 04/01/2025 Results Created Date Observation Date Name Description Value Unit Range Abnormal Flag Note LastModifiedBy Organization Detail LastModifiedTime 08/19/20 24 08/24/2024 THINP REP TIS PAP AND HPV MRNA E6/E7 , CHLAM YDIA/ N.ODIN ORRHO EAE clinical information: normal Radha l exam Not Available [address], [address], 08/24/2024 12:50:09 08/19/20 24 08/24/2024 THINP REP TIS PAP AND HPV MRNA E6/E7 , CHLAM YDIA/ N.ODIN ORRHO EAE LMP: normal NONE GIVEN Not Available [address], [address], 08/24/2024 12:50:09 08/19/20 24 08/24/2024 THINP REP TIS PAP AND HPV MRNA E6/E7 , CHLAM YDIA/ N.ODIN ORRHO EAE prev. Pap: normal NONE GIVEN Not Available [address], [address], 08/24/2024 12:50:09 08/19/20 24 08/24/2024 THINP REP TIS PAP AND HPV MRNA E6/E7 , CHLAM YDIA/ N.ODIN ORRHO EAE prev. BX: normal NONE GIVEN Not Available [address], [address], 08/24/2024 12:50:09 08/19/20 24 08/24/2024 THINP REP TIS PAP AND HPV MRNA E6/E7 , CHLAM YDIA/ N.ODIN ORRHO EAE source: normal Cervi x, Endoc ervix Not Available [address] [address] [place], [address], 08/24/2024 12:50:09 08/19/20 24 08/24/2024 THINP REP TIS PAP AND HPV MRNA E6/E7 , CHLAM YDIA/ N.ODIN ORRHO EAE statement of adequacy: normal Satis facto ry for evalu ation . Endoc ervic al/tr ansfo rmati on zone compo nent absen t. Not Available [address] [address] [place], [address], 08/24/2024 12:50:09 08/19/20 24 08/24/2024 THINP REP TIS PAP AND HPV MRNA E6/E7 , CHLAM YDIA/ N.ODIN ORRHO EAE interpretati on/result: normal Cytol ogy Resul ts: Negat justin for intra epith elial lesio n or luis mullen . Not Available [address] [address] [place], [address], 08/24/2024 12:50:09 08/19/20 24 08/24/2024 THINP REP TIS PAP AND HPV MRNA E6/E7 , CHLAM YDIA/ N.ODIN ORRHO EAE comment: normal This Pap test has been evalu ated with compu ter lionel sorin techn ology . Not Available [address] [address] [place], [address], 08/24/2024 12:50:09 08/19/20 24 08/24/2024 THINP REP TIS PAP AND HPV MRNA E6/E7 , CHLAM YDIA/ N.ODIN ORRHO EAE cytotechnolo gist: normal SXB, CT( CP) CT scree bere locat ion: [facility] is, [address], [place] [address] Labor atory Direc tor: TONYA Crenshaw MD, CLIA: [id number] Not Available [address] [place], [address], 08/24/2024 12:50:09 08/19/20 24 08/24/2024 THINP REP TIS PAP AND HPV MRNA E6/E7 , CHLAM YDIA/ N.ODIN ORRHO EAE comment EXPLA NATOR Y NOTE: The Pap is a scree bere test for cervi eliud cance r. It is not a diagn ostic test and is subje ct to false negat justin and false posit justin resul ts. It is most relia ble when a satis facto ry sampl e, regul genna obtai krystal, is submi tted with relev ant clini eliud findi ngs and histo ry, and when the Pap resul t is evalu ated along with histo tariq and curre nt clini eliud infor matio n. Not Available [address] [address] [place], [address], 08/24/2024 12:50:09 08/19/20 24 08/24/2024 THINP REP TIS PAP AND HPV MRNA E6/E7 , CHLAM YDIA/ N.ODIN ORRHO EAE HPV MRNA E6/E7 Not Detect ed not detect ed normal Metho dolog y: Trans cript ion-M ediat ed Ampli ficat ion This assay detec ts E6/E7 viral messe nger RNA (mRNA ) from 14 high- risk HPV types (16,1 8,31, 33,35 ,39,4 5,51, 52,56 ,58,5 9,66, 68). Cervi eliud sourc es are requi red for HPV testi ng. If a vagin al sourc e from a patie nt who has had a total hyste recto my with remov al of cervi x was submi tted, pleas e conta ct the testi ng labor atory for alter nativ e testi ng optio ns. For addit ional infor soniya lee plesarah e refer to http: //suma bermudezque stdia gnost ics.c om/fa q/FAQ 129v1 (This link if provi ded for infor soniya lee/ educa todd l purpo ses only. ) Not Available [facility] [address] [address] [place], [address], 08/24/2024 12:50:09 08/19/20 24 08/24/2024 THINP REP TIS PAP AND HPV MRNA E6/E7 , CHLAM YDIA/ N.ODIN ORRHO EAE chlamydia trachomatis RNA, tma, urogenital NOT DETECT ED not detect ed normal Not Available [address] [address] [place], [address], 08/24/2024 12:50:09 08/19/20 24 08/24/2024 THINP REP TIS PAP AND HPV MRNA E6/E7 , CHLAM YDIA/ N.ODIN ORRHO EAE neisseria gonorrhoeae RNA, tma, urogenital NOT DETECT ED not detect ed normal Not Available [facility] [address] [address] [place], [address], 08/24/2024 12:50:09 08/19/20 24 08/24/2024 THINP REP TIS PAP AND HPV MRNA E6/E7 , CHLAM YDIA/ N.ODIN ORRHO EAE comment The yovana tical perfo rmanc e mikayla cteri stics of this assay , when used to test SureP ath(T M) speci mens have been deter mined by [facility]. The modif icati ons have not been clear ed or appro sarah by the FDA. This assay has been valid ated pursu ant to the CLIA regul ation s and is used for clini eliud purpo ses. For addit ional darius mace e refer to https ://ed ucati on.qu estdi Henable. com/f aq/FA Q154 (This link is being provi ded for liz lee/ marcella espinal purpo ses only. ) Not Available [address] [address] [place], [address], 08/24/2024 12:50:09 04/01/20 25 04/01/2025 CBC WBC 11.2 x10 4.0-10 .5 high Not Available [facility] [address] [facility], [place], [address], 04/01/2025 17:42:33 04/01/20 25 04/01/2025 CBC RBC 4.84 x10 3.50-5 .50 Not Available [facility] [address] [facility], [place], [address], 04/01/2025 17:42:33 04/01/20 25 04/01/2025 CBC HGB 14.0 g/dL 12.0-1 6.0 Not Available [facility] [address] [facility], [place], [address], 04/01/2025 17:42:33 04/01/20 25 04/01/2025 CBC HCT 42.9 % 37.0-4 7.0 Not Available [facility] [address] [facility], [place], [address], 04/01/2025 17:42:33 04/01/20 25 04/01/2025 CBC MCV 88.7 fL 80.0-9 9.9 Not Available [facility] [address] [facility], [place], [address], 04/01/2025 17:42:33 04/01/20 25 04/01/2025 CBC MCH 28.8 pg 27.0-3 2.0 Not Available [facility] [address] [facility], [place], [address], 04/01/2025 17:42:33 04/01/20 25 04/01/2025 CBC MCHC 32.5 g/dL 32.0-3 6.0 Not Available [facility] [address] [facility], [place], [address], 04/01/2025 17:42:33 04/01/20 25 04/01/2025 CBC RDW 12.7 % 11.5-1 4.5 Not Available [facility] [address] [facility], [place], [address], 04/01/2025 17:42:33 04/01/20 25 04/01/2025 CBC plt 338.6 x10 140.0- 451.0 Not Available [facility] [address] [facility] 1, [place], [address], 04/01/2025 17:42:33 04/01/20 25 04/01/2025 CBC lymphocytes % 33.7 % 20.0-5 0.0 Not Available [facility] [address] [facility], [place], [address], 04/01/2025 17:42:33 04/01/20 25 04/01/2025 CBC granulcytes % 53.6 % 30.0-7 0.0 Not Available [facility] [address] [facility] 1, [place], [address], 04/01/2025 17:42:33 04/01/20 25 04/01/2025 CBC monocytes % 9.3 % 2.0-16 .0 Not Available [facility] [address] [facility], [place], [address], 04/01/2025 17:42:33 04/01/20 25 04/01/2025 CBC granulcytes# 6.0 x10 Not Sara ilable [facility] [address] [facility], [place], [address], 04/01/2025 17:42:33 04/01/20 25 04/01/2025 CBC lymphocytes # 3.8 x10 Not Available [facility] [address] [facility], [place], [address], 04/01/2025 17:42:33 04/01/20 04/01/2025 CBC monocytes # 1.0 x10 Not Avai lable [facility] [address] [facility] Mar[address] [facility], [place], [address], 04/01/2025 17:42:33 04/01/20 25 04/02/2025 CMP (FEMA LE) glucose 99.0 mg/dL 60.0-9 9.0 Not Available [facility] [address] [facility] [place], [address], 04/02/2025 08:36:57 04/01/2004/02/2025 CMP (FEMA LE) BUN (blood urea nitrogen) 15.0 mg/dL 10.0-2 6.0 Not Available [facility] [address] [facility], [place], [address], 04/02/2025 08:36:57 04/01/20 25 04/02/2025 CMP (FEMA LE) creatinine (serum) 0.6 mg/dL 0.4-1. 5 Not Available [facility] [address] [facility], [place], [address], 04/02/2025 08:36:57 04/01/20 25 04/02/2025 CMP (FEMA LE) BUN/creatini ne ratio 25.00 ratio Not Available [facility] [address] [facility], [place], [address], 04/02/2025 08:36:57 04/01/20 25 04/02/2025 CMP (FEMA LE) eGFR calculated 120.2 Not Available [facility] [address] [facility], [place], [address], 04/02/2025 08:36:57 04/01/20 25 04/02/2025 CMP (FEMA LE) total protein 7.9 g/dL 6.0-8. 5 Not Available [facility] [address] [facility], [place], [address], 04/02/2025 08:36:57 04/01/2004/02/2025 CMP (FEMA LE) total bilirubin 1.0 mg/dL 0.2-1. 3 Not Available [facility] [address] [facility], [place], [address], 04/02/2025 08:36:57 04/01/2004/02/2025 CMP (FEMA LE) albumin 4.7 g/dL 3.5-5. 5 Not Available [facility] [address] [facility], [place], [address], 04/02/2025 08:36:57 04/01/2004/02/2025 CMP (FEMA LE) globulin 3.2 calc Not Available [facility] [address] [facility], [place], [address], 04/02/2025 08:36:57 04/01/2004/02/2025 CMP (FEMA LE) AST (SGOT) 20.0 U/L 0.0-46 .0 Not Available [facility] [address] [facility], [place], [address], 04/02/2025 08:36:57 04/01/2004/02/2025 CMP (FEMA LE) altv (SGPT) 13.0 U/L 13.0-6 9.0 normal Not Available [facility] [address] [facility], [place], [address], 04/02/2025 08:36:57 04/01/2004/02/2025 CMP (FEMA LE) A/G ratio 1.5 ratio Not Available [facility] [address] [facility], [place], [address], 04/02/2025 08:36:57 04/01/2004/02/2025 CMP (FEMA LE) ALP phos 56.0 U/L 30.0-1 40.0 normal Not Available [facility] [address] [facility] 1, [place], [address], 04/02/2025 08:36:57 04/01/2004/02/2025 CMP (FEMA LE) calcium 9.6 mg/dL 8.4-10 .5 Not Available [facility] [address] [facility] 1, [place], [address], 04/02/2025 08:36:57 04/01/2004/02/2025 CMP (FEMA LE) sodium 141.0 mmol/ L 136.0- 145.0 Not Available [facility] [address] [facility], [place], [address], 04/02/2025 08:36:57 04/01/2004/02/2025 CMP (FEMA LE) potassium 4.0 mmol/ L 3.5-5. 1 Not Available [facility] [address] [facility] 1, [place], [address], 04/02/2025 08:36:57 04/01/2004/02/2025 CMP (FEMA LE) chloride 105.0 mmol/ L 98.0-1 10.0 normal Not Available [facility] [address] [facility] 1, [place], [address], 04/02/2025 08:36:57 04/01/2004/02/2025 CMP (FEMA LE) C02 27.0 mmol/ L 22.0-3 1.0 Not Available [facility] [address] [facility] 1, [place], [address], 04/02/2025 08:36:57 04/01/2004/02/2025 CMP (FEMA LE) anion gap 9.0 calc Not Available [facility] [address] [facility] 1, [place], [address], 04/02/2025 08:36:57 04/01/20 25 04/02/2025 CMP (FEMA LE) osmolality 292.0 calc Not Available [facility] [address] [facility] 1, [place], [address], 04/02/2025 08:36:57 12/22/19 25 12/21/2024 elect rocar diogr am No observ ation record ed. [email or web address] [facility] ([facility]) [address] [place], [address], 12/22/2024 09:46:55 12/22/19 25 12/21/2024 elect rocar diogr am No observ ation record ed. [email or web address] [facility] ([facility]) [address] [place], [address], 12/22/2024 08:42:55 12/23/1912/21/2024 elect rocar diogr am No observ ation record ed. [email or web address] [facility] ([facility]) [address] [place], [address], 12/23/2024 08:43:47 01/27/20 25 01/05/2025 arely r monit or No observ ation record ed. [email or web address] [facility] [address] [place], [address], 01/29/2025 09:24:35 Result Notes None recorded. Problems Name Problem SNOMED Code Status Onset Date Resolution Date Notes Provider Name and Address Organization Details Recorded Time Intermittent palpitations 227842018 Active 2024 Maryana Callahan MD [address] [place] [address], [phone], [facility]Marcelina 5 12:54:56 Visual disturbance 13355835 Active 2024 Maryana Callahan MD [address] [place] [address], [phone], [facility], L.LEmely 5 17:19:42 Problem Notes None recorded. Procedures Surgical History Date Name Laterality Status Provider Name and Address Organization Details Recorded Time 5 extraction of wisdom tooth completed Allen [facility], David.LShashiCShashi 12/21/2024 12:41:16 Imaging Results None recorded. Procedure Notes None recorded. Medical Equipment None Reported. Allergies No known drug allergies Medications Name Sig Start Date Stop Date Status Note LastModified by Organization Details LastModified Time progester one 50 mg/mL intramusc ular oil INJECT 1ML INTRAMUS CULARLY DAILY active Not Available Not Available No t Available estradiol 2 mg tablet Take 1 tablet by mouth three times a day; as directed . active Not Available Not Available No t Available norethind chester (contrace ptive) 0.35 mg tablet TAKE 1 TABLET BY MOUTH ONCE DAILY WHEN INSTRUCT ED (TAKE ONLY ACTIVE PILLS, AVOID PLACEBO/ SUGAR PILLS THAT ARE A DIFFEREN T COLOR) active Not Available Not Available No t Available leuprolid e 1 mg/0.2 mL subcutane ous kit Inject 5-10 units daily as instruct ed by calendar AND care team. active Not Available Not Available No t Available Depo-Prov era Q 3 MONTHS 08/12 completed 0; Recorded 04/24/20 16 11:49AM by Lita Vega LPN, Office Visit; Not Available Not Available Not Available Endometri n 100 mg vaginal insert Insert 1 tablet in the vagina twice a day; when directed by care team. active Not Available Not Available No t Available Vitals Date Recorded Body height Body mass index (BMI) Body weight Respiratory rate Body temperature Heart rate Oxygen saturation Oxygen saturation in Arterial blood by Pulse oximetry Systolic And Diastolic Provider Name and Address Organization Details Last Updated DateTime 5 152.4 cm 26.4 kg/m2 71238.0 7 g 16 /min 97.3 [degF] 89 /min 99 % 99 % 138/80 mm[Hg] Allen Jiménez [facility] 5 12:45:19 Date Recorded Body height Body mass index (BMI) Body weight Body temperature Oxygen saturation Oxygen saturation in Arterial blood by Pulse oximetry Heart rate Systolic And Diastolic Provider Name and Address Organization Details Last Updated DateTime 5 152.4 cm 26.2 kg/m2 36354.3 8 g 97.8 [degF] 98 % 98 % 66 /min 110/80 mm[Hg] Sintia [facility] 5 17:04:36 Date Recorded Body weight Body temperature Oxygen saturation Oxygen saturation in Arterial blood by Pulse oximetry Heart rate Systolic And Diastolic Provider Name and Address Organization Details Last Updated DateTime 4 43380.3 4 g 97.5 [degF] 98 % 98 % 76 /min 124/80 mm[Hg] OLI DHALIWAL [facility] 4 17:26:34 Date Recorded Respiratory rate Body height Body mass index (BMI) Body weight Body temperature Heart rate Oxygen saturation Oxygen saturation in Arterial blood by Pulse oximetry Systolic And Diastolic Provider Name and Address Organization Details Last Updated DateTime 4 20 /min 152.4 cm 26.5 kg/m2 29709.7 7 g 97.3 [degF] 82 /min 99 % 99 % 106/70 mm[Hg] GILDA ARTG [facility] 4 17:10:36 Social History Question Answer Notes LastModified by Relify Details LastModified Time Tobacco Smoking Status Former Smoker [facility]LI [facility]WAL [facility] 08/12/2024 17:24:12 What Is Your Level Of Caffeine Consumption? Occasional Information not available 08/12/2024 What Was The Date Of Your Most Recent Tobacco Screening? 04/01/2025 [email or web address] Information not available 04/01/2025 What Is Your Relationship Status? Information not available 08/12/2024 Sex: Unknown Functional Status Question Answer Note LastModified by Organizat ion Details LastModified Time Do you use any illicit or recreational drugs? No Information not available 08/12/2024 What is your level of alcohol consumption? Occasional Information not available 08/12/2024 Are you currently employed? Yes Information not available 08/12/2024 Are you able to walk? YESWOREST Information not available 08/12/2024 Are you able to care for yourself independently? Yes Information not available 08/12/2024 Mental Status None recorded. Family History Relationship Description Onset Age of this Age Resolved Age Notes LastModified by Organization Details LastModified Time Father No current problems or disability [email or web address] Not available 08/12 17:23:41 Mother No current problems or disability amckale Not available 08/12 17:23:41 Medical History No medical history recorded. Gynecological History Statement/Question Response Abnormal Pap N Date of Last Pap Smear Date of LMP 07/25/2024 LMP Definite Obstetrics History GPAL:G 2 P 2 0 0 0 Type Value Full Term 2 Total 2 Immunizations Vaccine Type Date Status Note Provider Nam e and Address Organization Details Recorded Time DTP 9 completed Not Available [facility] 04/01/2025 16:48:47 polio, unspecified formulation 9 completed Not Available [facility] 04/01/2025 16:48:47 DTP 9 completed Not Available [facility] 04/01/2025 16:48:47 polio, unspecified formulation 9 completed Not Available [facility] 04/01/2025 16:48:47 DTP 0 completed Not Available [facility] 04/01/2025 16:48:47 polio, unspecified formulation 0 completed Not Available [facility] 04/01/2025 16:48:47 MMR 0 completed Not Available [facility] 04/01/2025 16:48:47 DTP 4 completed Not Available [facility] 04/01/2025 16:48:47 Hep B, unspecified formulation 9 completed Not Available [facility] 04/01/2025 16:48:47 Hep B, unspecified formulation 0 completed Not Available [facility] 04/01/2025 16:48:47 Hep A, unspecified formulation 0 completed Not Available [facility] 04/01/2025 16:48:47 Hep B, unspecified formulation 0 completed Not Available [facility] 04/01/2025 16:48:47 MMR 0 completed Not Available [facility] 04/01/2025 16:48:47 Hep A, unspecified formulation 1 completed Not Available [facility] 04/01/2025 16:48:47 Td (adult), 2 Lf tetanus toxoid, preservative free, adsorbed 5 completed Not Available [facility] 04/01/2025 16:48:47 Tdap 1 completed Not Available [facility] 04/01/2025 16:48:47 meningococcal MCV4P 1 completed Not Available [facility] 04/01/2025 16:48:47 HPV, quadrivalent 3 completed Not Available [facility] 04/01/2025 16:48:47 HPV, quadrivalent 3 completed Not Available [facility] 04/01/2025 16:48:47 HPV, quadrivalent 3 completed Not Available [facility] 04/01/2025 16:48:47 COVID-19, mRNA, LNP-S, PF, 100 mcg/0.5mL dose or 50 mcg/0.25mL dose 1 completed Not Available [facility] 04/01/2025 16:48:47 COVID-19, mRNA, LNP-S, PF, 100 mcg/0.5mL dose or 50 mcg/0.25mL dose 1 completed Not Available [facility] 04/01/2025 16:48:47 Rabies - IM fibroblast culture 2 completed Not Available [facility] 04/01/2025 16:48:47 Tdap 2 completed Not Available [facility] 04/01/2025 16:48:47 Rabies - IM fibroblast culture 2 completed Not Available [facility] 04/01/2025 16:48:47 Rabies - IM fibroblast culture 2 completed Not Available [facility] 04/01/2025 16:48:47 Influenza, split virus, quadrivalent, PF 2 completed Not Available [facility] 04/01/2025 16:48:47 Influenza, split virus, quadrivalent, PF 3 completed Not Available [facility] 04/01/2025 16:48:47 Influenza, split virus, trivalent, PF 4 completed Not Available [facility] 04/01/2025 16:48:47 MMR 5 completed Not Available [facility] 04/01/2025 16:48:47 Past Encounters Encounter ID Performer Location Encounter Start Date Encounter Closed Date Diagnosis/Indication Diagnosis SNOMED-CT Code Diagnosis ICD10 Code Diagnosis Note [id number] Maryana Callahan MD [facility] ([facility]) [address] [place] [phone] 08/12/2024 17:14:30 08/12/2024 17:45:28 Adult health examination 323124754 Z00.00 No significan t abnormalit ies noted on exam today. Will have the patient scheduled for a well woman exam with Pap smear and breast exam as part of her evaluation for surrogacy. Discussed age and risks that is involved with . The patient intends to have embryo implanted. [id number] Maryana Callahan MD [facility] ([facility]) [address] [place] [phone] 08/19/2024 16:41:53 08/19/2024 17:24:23 Gynecologic examination 56833591 Z01.419 Normal exam today. Pap smear obtained. [id number] Maryana Callahan MD [facility] ([facility]) [address] [place] [phone] 5 12/21/2024 12:32:11 12/21/2024 14:13:20 Intermittent palpitations 175736007 R00.2 EKG was obtained and reviewed by me. It showed a heart rate of 63 with no other abnormalit ies. We will proceed with 72-hour Holter monitor as she is having symptoms most days. [id number] Maryana Callahan MD [facility] ([facility]) [address] [place] [phone] 04/01/2025 16:48:30 04/01/2025 18:00:45 Visual disturbance 25871154 H53.9 Concerned about the patient's transient eye issues. Will check labs today. I do recommend that we send referral to ophthalmol [place] for full evaluation of her right eye. Health Concerns Section Related Observation LastModified by Organization Detai ls LastModified Time None Recorded Concern Status LastModified by Organization Details LastModified Time None Recorded Advance Directives Directive None Recorded Payers Insurance Date Sequence Insurance Name Policy Number Policy Ogff Covered Member ID Goff Member ID Guarantor Name 09/10/2024 2 [employer] (MEDICARE REPLACEMENT HMO) Nadine Surface [id number] Nadine A Surface 09/08/2024 2 [employer] (MEDICARE REPLACEMENT HMO) Nadine Surface [id number] Nadine A Surface 09/08/2024 2 [facility] (MEDICAID REPLACEMENT - HMO) Nadine Surface [id number] Nadine A Surface 09/09/2024 2 [facility] (MEDICAID REPLACEMENT - HMO) Nadine Surface [id number] Nadine A Surface 09/10/2024 2 [facility] (MEDICAID REPLACEMENT - HMO) Nadine Surface [id number] Nadine A Surface 09/09/2024 2 [employer] (MEDICARE REPLACEMENT HMO) Nadine Surface [id number] Nadine A Surface 10/22/2024 1 [employer] (MEDICARE REPLACEMENT HMO) Nadine Surface [id number] Nadine A Surface 10/30/2024 1 [facility] (MEDICAID REPLACEMENT - HMO) Nadine Surface [id number] Nadine A Surface 10/19/2024 1 [facility] [id number] Nadine A Surface [id number] Nadine A Surface 03/31/2025 1 [employer] (PPO) [id number] Nadine A Surface [id number] Nadine A Surface Notes Date Note Type Note Provider Name and Address Organization Details Recorded Time 08/12/2024 text/html Annual WellnessReported by PatientSocial/Behavior al HistoryFor fracture risk, patient reportshistory of fractures. For diet and nutrition, patient reportshealthy diet. For physical activity, patient reportsgood physical condition. For additional lifestyle factors, patient reportsno tobacco useanddrinks alcohol (mild-moderate).Mental Status:For depression risk, patient reportsno history of depressionandno history of mood disorders.Functional AbilityFor vision, (wears glasses). This is a 34-year-old female comes in today to establish care. The patient is intending to do surrogacy. Patient denies any significant medical problems. Patient not currently taking any medications. The patient has had 2 previous pregnancies without any complications. The patient will need a well woman exam as part of this evaluation. The patient intends to do her care here at this clinic. Maryana Callahan MD [address] [place] [address], [phone], [facility] 08/16/2024 09:19:52 08/19/2024 text/html Annual GYNReport ed by Patient 4-year-old female that comes in today for Pap smear and breast exam. The patient is planning to do surrogacy. The patient denies any breast concerns. The patient does not have any vaginal concerns and she denies any abnormal Paps. Maryana Callahan MD [address] [place] [address], [phone], [facility] 08/26/2024 18:16:37 12/21/2024 text/html Patient here today with c/o heart palpitations. She states that for the last couple of days she can, hear my pulse in my ears. . the symptoms occur mostly at night and when she goes to bed and lays on her Left side. Patient denies any chest pain Maryana Callahan MD [address] [place] [address], [phone], [facility] 12/21/2024 17:12:39 04/01/2025 text/html Pt is here today to discuss her right eye has been giving her problems for nearly 7 months. This week she has pain in her eye (sharp and stabbing) and losing focus even with glasses on for approximately 15 minutes.She states her vision in the right eye is like having a white layer Over it but it does resolve.Family hx of macular degenerationPT had eye exam [facility], he did not see eye disease at that time. Maryana Callahan MD [address] [place] [address], [phone], [facility], Kelsie 04/04/2025 20:45:46 OBGyn Episode No OBEpisode recorded.
[2025-04-10 11:29] VITALS: BP 128/72; PULSE 65; RESP 16; TEMP 37.1; O2SAT 99; BMI 26.4
--- NOTE | 2025-04-10 13:18 | CTR_ITS ---
PROCEDURE INFORMATION: Exam: CT Head Without Contrast Exam date and time: 04/10/2025 1:24 PM Age: 34 years old Clinical indication: Visual disturbance; Additional info: Abnormal vision TECHNIQUE: Imaging protocol: Computed tomography of the head without contrast. Radiation optimization: All CT scans at this facility use at least one of these dose optimization techniques: automated exposure control; mA and/or kV adjustment per patient size (includes targeted exams where dose is matched to clinical indication); or iterative reconstruction. COMPARISON: CT head wo con* [id number] 09/11/2021 12:18 PM RADIATION DOSE METRICS: Total DLP (mGy-cm): 1021.28 FINDINGS: Brain: Normal. No hemorrhage. Unremarkable white matter. No mass effect. Cerebral ventricles: No ventriculomegaly. Paranasal sinuses: Visualized sinuses are unremarkable. No fluid levels. Mastoid air cells: Visualized mastoid air cells are well aerated. Bones: Unremarkable. No acute fracture. Soft tissues: Unremarkable. CT/CT head wo con* [id number] IMPRESSION: No acute intracranial abnormality.
--- NOTE | 2025-04-10 13:18 | ED_ITS ---
HPI - Eye Problem 2 General: Chief complaint: Eye Problems Stated complaint: stroke like symptoms Time Seen by Provider: 04/10/25 12:56 History of Present Illness: 34-year-old female presents emergency ro om complaining of intermittent vision loss today. She has had this previously she actually is an appointment in a few days with ophthalmology. She had transient loss of vision while she has morning urine today is already resolved. She has no headache no direct injury to the eye. No other symptoms. No pain in her eye. Associated symptoms: Denies fever(s) or neck pain Related Data Home Medications ?Medication ?Instructions ?Recorded ?Confirmed estradiol 2 mg tablet 2 mg PO TID 04/10/25 5 leuprolide 1 mg/0.2 mL See Rx Instructions .Route . COMPLEX 04/10/25 04/10/25 subcutaneous kit norethindrone (contraceptive) 0.35 See Rx Instructions .Route .COMPLEX 04/10/25 04/10/25 mg tablet progesterone 50 mg/mL 50 mg IM DAILY 04/10/2503/17 intramuscular oil progesterone micronized 100 mg See Rx Instructions .Ro guerita .COMPLEX 04/10/25 04/10/25 vaginal insert (Endometrin) Allergies Allergy/AdvReac Type Severity Reaction Status Date / Time pineapple Allergy Unknown Verified 07/21/24 09:27 Review of Systems 2 Const: Denies: fever(s) or chills Card: Denies: chest pain Resp: Denies: dyspnea GI: Denies: abdominal pain : Denies: dysuria, urinary frequency or urinary urgency Musc: Denies: neck pain or back pain Skin/Breast: Denies: rash PFSH ED 2 PFSH: Medical History No pertinent past medical history Denies diabetes, asthma, hypertension, seizures, DVT/PE PCP: Andree Surgical History No history of previous surgery Family History Other Ovarian cancer Denies family history of Diabetes Heart disease Hyperlipidemia Breast cancer Hypertension Uterine cancer Thyroid disease Stroke Social History Smoking and tobacco/nicotine status: never used tobacco/nicotine Female Reproductive History: Date of last menstrual period: 03/15/25 Physical Exam 2 Const: COMMON NORMALS: no acute distress GENERAL APPEARANCE: cooperative and comfortable ORIENTATION/CONSCIOUSNESS: Yes awake, Yes oriented to person, Yes oriented to place and Yes oriented to time HENMT: COMMON NORMALS: normocephalic, atraumatic and hearing grossly normal bilaterally HEAD & SCALP: normocephalic and atraumatic Eye: OTHER: No redness or erythema no ecchymosis Extraocular is intact pupils equal react light and accommodation. Visual acuity at the bedside with a hand-held Snellen chart held at 2 feet from the eyes patient was able to read down to the line 7 with no difficulty using her right eye. Resp: COMMON NORMALS: normal respiratory effort, No retractions, No use of accessory muscles and clear to auscultation bilaterally AUSCULTATION: clear to auscultation bilaterally Cardio: COMMON NORMALS: regular rate, regular rhythm and No murmurs present (Cardio) RATE: regular rate RHYTHM: regular rhythm GI: COMMON NORMALS: Soft to palpation and No hepatosplenomegaly present A USCULTATION: Yes normoactive bowel sounds PALPATION: Yes Soft to palpation, No Tenderness to palpation present (GI), No Guarding due to palpation present (GI) and Yes No hepatosplenomegaly present Extremity: COMMON NORMALS: normal to inspection, capillary refill normal, no clubbing, cyanosis or edema, no calf tenderness and no pedal edema Neuro: SENSORIUM/ORIENTATION: Yes oriented to person, Yes oriented to place and Yes oriented to time Skin: COMMON NORMALS: no rashes or lesions noted GENERAL SKIN EXAM: no rashes or lesions noted Course 2 Vital Signs: Vital signs: Vital Signs Temperature 98.8 F 04/10/25 11:29 Pulse Rate 63 04/10/25 14:45 Respiratory Rate 16 04/10/25 14:45 Blood Pressure 123/76 04/10/25 14:45 Pulse Oximetry 100 04/10/25 14:45 Oxygen Delivery Me thod Room Air 04/10/25 14:45 MDM - Eye Problem Medical Decision Making CT head negative sed rate normal. No other findings. Will discharge patient home keep her appointment with ophthalmology no acute findings at this time. Lab Data 04/10/25 13:51 04/10/25 13:[address] 04/10/25 13:18 IMPRESSION: No acute intracranial abnormality. Laboratory Results WBC 10.69 10^3/uL (3.29-11.43) 04/10/25 13:51 RBC 4.70 10^6/uL (3.85-5.65) 04/10/25 13:51 Hgb 13.10 g/dL (11.27-16.99) 04/10/25 13:51 Hct 41.8 % (36-47) 04/10/25 13:51 MCV 88.9 fl (85-98) 04/10/25 13:51 MCH 27.9 pg (27-33) 04/10/25 13:51 MCHC 31.3 g/dL (30-55) 04/10/25 13:51 RDW 11.9 % (12.1-15.1) L 04/10/25 13:51 Plt Count 273 10^3/cmm (157-399) 04/10/25 13:51 MPV 11.0 fL (7.4-10.4) H 04/10/25 13:51 Neut % (Auto) 59.4 % 04/10/25 13:51 Lymph % (Auto) 29.3 % 04/10/25 13:51 Mobile % (Auto) 7.7 % 04/10/25 13:51 Eos % (Auto) 2.9 % 04/10/25 13:51 Baso % (Auto) 0.5 % 04/10/25 13:51 Neut # (Auto) 6.36 10^3/uL (1.8-7.7) 04/10/25 13:51 Lymph # (Auto) 3.1 10^3/uL (0.8-4.8) 04/10/25 13:51 Mobile # (Auto) 0.8 10^3/uL (0.2-0.9) 04/10/25 13:51 Eos # (Auto) 0.3 10^3/uL (0.0-0.8) 04/10/25 13:51 Baso # (Auto) 0.1 10^3/uL (0.0-0.1) 04/10/25 13:51 Nucleated RBC % (auto) 0 % 04/10/25 13:51 Nucleated RBCs # 0.0 /100WBC 04/10/25 13:51 ESR < 1 mm/hr (0-15) 04/10/25 13:51 Sodium 138 mmol/L (136-145) 04/10/25 13:51 Potassium 4.1 mmol/L (3.5-5.1) 04/10/25 13:51 Chloride 103 mmol/L (98-107) 04/10/25 13:51 Carbon Dioxide 22 mmol/L (22-29) 04/10/25 13:51 Anion Gap 17.1 (5-19) 04/10/25 13:51 BUN 14 mg/dL (6-20) 04/10/25 13:51 Creatinine 0.5 mg/dL (0.5-0.9) 04/10/25 13:51 GFR Calculation 139.6 mL/min (90-130) H 04/10/25 13:51 Glucose 103 mg/dL (65-115) 04/10/25 13:51 Calculated Osmolality 287 mOsm/kg (285-295) 04/10/25 13:51 Calcium 9.4 mg/dL (8.5-10.5) 04/10/25 13:51 Total Bilirubin 0.6 mg/dL (0.15-1.2) 04/10/25 13:51 AST 13 U/L (0-32) 04/10/25 13:51 ALT 7 U/L (0-33) 04/10/25 13:51 Alkaline Phosphatase 60 U/L (35-105) 04/10/25 13:51 Total Protein 7.3 g/dL (6.6-8.7) 04/10/25 13:51 Albumin 4.3 g/dL (3.5-5.2) 04/10/25 13:51 Globulin 3.0 g/dL (1.3-4.6) 04/10/25 13:51 All radiology interpretation(s) finalized by discharge Discharge Plan Discharge Patient Disposition: Home Clinical Impression: Changes in vision Condition: Stable Prescriptions: No Action progesterone 50 mg/mL oil 50 mg IM DAILY estradiol 2 mg tablet 2 mg PO TID norethindrone (contraceptive) 0.35 mg tablet See Rx Instructions .ROUTE .COMPLEX Rx Instructions: TAKE 1 TABLET BY MOUTH ONCE DAILY WHEN INSTRUCTED (TAKE ONLY ACTIVE PILLS, AVOID PLACEBO/SUGAR PILLS THAT ARE A DIFFERENT COLOR) leuprolide 1 mg/0.2 mL kit See Rx Instructions .ROUTE .COMPLEX Rx Instructions: Inject 5-10 units daily as instructed by calendar AND care team. Endometrin 100 mg insert See Rx Instructions .ROUTE .COMPLEX Rx Instructions: Insert 1 tablet in the vagina twice a day; when directed by care team. Discharge Orders: Discharge ED (Routine); Ordered 04/10/25 Ordered By: Bobby Myers Referrals: Des Callahan MD [Primary Care Provider, Family Practice] Discharge Diet: Usual diet Discharge Activity: Resume usual activity Patient Instructions: Opioid Safety, Pain Management, Patient Portal & Ward Instructions Activity Restrictions/Additional Instructions: Thank you for choosing [facility] for your healthcare needs today. It is very important that you follow up as instructed or that you return to the Emergency Department should you have concerns or if your condition changes or worsens in any way. You were seen in the emergency room with complaints of vision changes. Your visual acuity test at the bedside was normal. CT of your head CBC and sed rate were all normal as well. Recommend you keep your appointment with ophthalmology as scheduled return if you have further problems. Avoid strenuous activities Print Language: Setswana Coding Level of Care Code ED Production Support Consultant for Jalyn Garcia
[2025-04-10 13:58] LABS: Hematocrit 41.8 % (36-47); Hemoglobin 13.10 g/dL (11.27-16.99); Mean Corpuscular HGB Conc 31.3 g/dL (30-55); Mean Corpuscular Hemoglobin 27.9 pg (27-33); Mean Corpuscular Volume 88.9 fl (85-98); Nucleated Red Blood Cells % 0 %; Platelet Count 273 10^3/cmm (157-399); Red Blood Count 4.70 10^6/uL (3.85-5.65); White Blood Count 10.69 10^3/uL (3.29-11.43)
[2025-04-10 14:18] LABS: Alanine Aminotransferase 7 U/L (0-33); Albumin Level 4.3 g/dL (3.5-5.2); Alkaline Phosphatase 60 U/L (35-105); Anion Gap 17.1 (5-19); Aspartate Amino Transferase 13 U/L (0-32); Blood Urea Nitrogen 14 mg/dL (6-20); Calcium 9.4 mg/dL (8.5-10.5); Carbon Dioxide 22 mmol/L (22-29); Chloride 103 mmol/L (98-107); Creatinine Clr Calc Pharmacy 127.1830; Globulin 3.0 g/dL (1.3-4.6); Glucose 103 mg/dL (65-115); Osmolality Calculated 287 mOsm/kg (285-295); Potassium 4.1 mmol/L (3.5-5.1); Sodium 138 mmol/L (136-145); Total Protein 7.3 g/dL (6.6-8.7)
[2025-04-10 14:45] VITALS: BP 123/76; PULSE 63; RESP 16; O2SAT 100
== END 2025-04-10 15:28 | disposition home or self-care (01) ==
PROVIDERS: Emergency Provider Family Medicine; PCP Family Medicine
DX: H53.9 Unspecified visual disturbance (principal)
CPT/HCPCS: 36415; 70450; 80053; 85025; 85651; 99284

== ENCOUNTER 2025-05-10 07:47 | Outpatient (CLI) | payer SELFPAY ==
--- NOTE | 2025-05-10 08:00 | US_ITS ---
WS: [id number] US transvaginal [id number] HISTORY: FOLLICLES AND ENDO COMPARISON: 03/08/2025 Uterus: 8.7 cm x 5.6 cm x 4.9 cm. Normal size anteverted uterus. In the posterior myometrium is a hypoechoic mass measuring 1.4 x 1.6 x 0.9 cm which is most likely a small fibroid. Not identified on the prior study. Endometrium: 0.4 cm. Thin echogenic endometrium. No increased vascularity. Right ovary: 1.5 cm x 1.8 cm x 1.3 cm. No follicles are identified. No cyst or solid mass. Left ovary: 1.7 cm x 1.6 cm x 1.3 cm. Normal size ovary. No follicles identified. No free fluid in the cul-de-sac. US/US transvaginal [id number] IMPRESSION: 1. Normal thin endometrium at 0.4 cm. 2. No ovarian follicles identified.
== END 2025-05-10 07:48 | disposition home or self-care (01) ==
LOC: RAD 07:48
PROVIDERS: PCP Family Medicine; Visit Provider Obstetrics & Gynecology Reproductive Endocrinology
DX: Z31.83 Encounter for assisted reproductive fertility procedure cycle (principal)
CPT/HCPCS: 76830

== ENCOUNTER 2025-05-25 07:17 | Outpatient (CLI) | payer SELFPAY ==
--- NOTE | 2025-05-25 07:29 | US_ITS ---
WS: [id number] US transvaginal [id number] HISTORY: MEASUREMENT OF ALL FOLLICLES/ENDOMETRIAL THICKNESS PATTERN COMPARISON: None available. Uterus: 7.3 cm x 5.4 cm x 5.0 cm. Normal size anteverted uterus. Posterior myometrial hypoechoic mass measures 1.4 x 1.2 x 0.9 is most likely a fibroid. Endometrium: 1.6 cm. Heterogeneous endometrium. Right ovary: 2.2 cm x 1.2 cm x 1.9 cm. Normal size RIGHT ovary and normal vascularity. The largest follicle 1.0 x 0.7 x 0.7 cm. There are 2 adjacent small follicles. Number of follicles is less than 5. Left ovary: 2.3 cm x 1.4 cm x 2.2 cm. Normal size ovary and vascularity. There are a few very tiny follicles with the largest measuring 4 x 2 x 4 mm. Only 1-2 follicles identified. No free fluid in the cul-de-sac. US/US transvaginal [id number] IMPRESSION: 1. Endometrial thickness: 1.6 cm. 2. Very small bilateral ovarian follicles. Less than 5 follicles within each o vary.
== END 2025-05-25 07:18 | disposition home or self-care (01) ==
PROVIDERS: PCP Family Medicine; Visit Provider Obstetrics & Gynecology Reproductive Endocrinology
DX: Z31.83 Encounter for assisted reproductive fertility procedure cycle (principal); R93.89 Abnormal findings on diagnostic imaging of other specified body structures; E28.39 Other primary ovarian failure
CPT/HCPCS: 36415; 76830; 82670; 84144

== ENCOUNTER 2025-06-10 07:56 | Outpatient (CLI) | payer SELFPAY | END 2025-06-10 07:57 | disposition home or self-care (01) | PROVIDERS: PCP Family Medicine; Visit Provider Obstetrics & Gynecology Reproductive Endocrinology | DX: Z31.83 Encounter for assisted reproductive fertility procedure cycle (principal) | CPT/HCPCS: 36415; 84702 ==

== ENCOUNTER 2025-06-14 08:21 | Outpatient (CLI) | payer SELFPAY | END 2025-06-14 08:22 | disposition home or self-care (01) | PROVIDERS: PCP Family Medicine; Visit Provider Obstetrics & Gynecology Reproductive Endocrinology | DX: Z31.83 Encounter for assisted reproductive fertility procedure cycle (principal); Z32.01 Encounter for pregnancy test, result positive | CPT/HCPCS: 36415; 82670; 84144; 84702 ==

== ENCOUNTER 2025-06-28 06:24 | Outpatient (CLI) | payer SELFPAY ==
--- NOTE | 2025-06-28 06:35 | US_ITS ---
WS: [id number] EARLY OBSTETRICAL ULTRASOUND (<14 WEEKS). HISTORY: Dating COMPARISON: None available. Single intrauterine gestational sac is identified. Cardiac activity at 147 BPM. Sagar-rump length measures 0.7 cm which corresponds to a gestation of 6w4d. Normal-appearing yolk sac and amnion demonstrated. No subchorionic hemorrhage. No free fluid. The RIGHT ovary measures 2.0 x 1.9 x 1.1 cm. Normal vascularity. LEFT ovary measures 2.1 x 1.7 x 1.0 cm. Corpus luteal cyst associated with the LEFT ovary measures 1.0 x 1.0 x 1.1 cm. US/US OB <=14 wk fetus w transvag IMPRESSION: 1. Single intrauterine gestation of 6w4d with an EDC of 02/17/2026. 2. Normal heart rate.
== END 2025-06-28 06:25 | disposition home or self-care (01) ==
LOC: RAD 06:29
PROVIDERS: PCP Family Medicine; Visit Provider Obstetrics & Gynecology Reproductive Endocrinology
DX: O09.00 Supervision of pregnancy with history of infertility, unspecified trimester (principal); Z3A.09 9 weeks gestation of pregnancy
CPT/HCPCS: 76801; 76817

== ENCOUNTER 2025-07-07 16:44 | Outpatient (CLI) | payer SELFPAY ==
--- NOTE | 2025-07-07 16:52 | USR_ITS ---
PROCEDURE INFORMATION: Exam: US First Trimester, Transabdominal Exam date and time: 07/07/2025 4:56 PM Age: 35 years old Clinical indication: Screening exam; Routine US, uterus; Additional info: Repeat early ob ultrasound LABS AND CLINICAL REPORTS: Last menstrual period start date: 04/18/2025 Gestational age (Established): 11 w 3 d Estimated due date (Established): 01/23/2026 TECHNIQUE: Imaging protocol: Real-time transabdominal obstetrical ultrasound of the maternal pelvis and a first trimester , less than 14 weeks 0 days, with image documentation. COMPARISON: US OB <=14 wk fetus w transvag 06/28/2025 6:39 AM FINDINGS: GESTATION: Gestation: Yolk sac measures 3.3 mm. Single intrauterine gestation identified. The yolk sac is within normal limits. The gestational sac is within normal limits. Embryo/ cardiac activity (BPM): 171 bpm. heart rate of 171 bpm. Extra-embryonic membranes/Placenta: Unremarkable. No subchorionic bleed. Amniotic/Chorionic fluid: Amniotic and extra-amniotic fluid are normal for gestational age. BIOMETRY: Gestational age (AUA): Gestational age of 8 weeks and 1 day. Mean sac diameter: 3.02 cm. EGA (MSD) is 8 w 1 d MATERNAL: Uterus: Unremarkable. Cervix: Unremarkable. Endocervical canal is closed. Right ovary/adnexa: The right ovary is difficult to evaluate. Left ovary/adnexa: The left ovary is seen. Intraperitoneal space: No free fluid in the pelvic cul-de-sac. US/US OB <= 14 weeks fetus [id number] IMPRESSION: Single live intrauterine gestation as above.
== END 2025-07-07 16:45 | disposition home or self-care (01) ==
LOC: RAD 16:45
PROVIDERS: PCP Family Medicine; Visit Provider Obstetrics & Gynecology Reproductive Endocrinology
DX: O09.01 Supervision of pregnancy with history of infertility, first trimester (principal); Z3A.11 11 weeks gestation of pregnancy
CPT/HCPCS: 76801